=== PATIENT | female | born 1970 | race Caucasian/White ===

== ENCOUNTER 2019-04-24 19:18 | Emergency (ER) | payer MEDICAID ==
[~2019-04-24] VITALS: Ht 154.9 cm; Wt 64.0 kg
[2019-04-24 19:33] VITALS: BP 128/72
== END 2019-04-24 22:13 | disposition left against medical advice (07) ==
LOC: ER 19:18
DX: Z53.21 Procedure and treatment not carried out due to patient leaving prior to being seen by health care provider (principal)

== ENCOUNTER 2019-04-25 11:10 | Inpatient (IN) | payer MEDICAID ==
[~2019-04-25] VITALS: Ht 154.9 cm; Wt 63.5 kg
[2019-04-25] MEDS ORDERED: PIPERACILLIN/TAZ 3.375G PREMIX 50 ML IV ONE ×2 (12:00)
[2019-04-25] MEDS ORDERED: ONDANSETRON HCL 4MG/2ML INJ IV ONE (12:00)
[2019-04-25] MEDS ORDERED: MORPHINE SULFATE 4 MG/ML CPJ (NOT FOR IM USE) IV ONE (12:00)
[2019-04-25] MEDS ORDERED: SODIUM CHLORIDE 0.9% 1000ML BAG (SEPSIS BOLUS) IV ONE (12:00)
[2019-04-25] MEDS ORDERED: MORPHINE SULFATE 4 MG/ML CPJ (NOT FOR IM USE) IV NR (12:17)
[2019-04-25 12:21] LABS: BASOPHILS % 0.5 % (0.0-2.0); EOSINOPHILS % 0.8 % (0.0-5.0); HEMATOCRIT. 35.3 % (36.0-48.0); HEMOGLOBIN. 11.3 g/dL (12.0-16.0); LYMPHOCYTES % 11.6 % (20.0-50.0); MEAN CORPUSCULAR HEMOGLOBIN 25.4 pg (28.0-32.0); MEAN CORPUSCULAR VOLUME 79.6 fL (81.0-99.0); MEAN PLATELET VOLUME 8.7 fl (7.4-10.4); MONOCYTES % 8.6 % (2.0-8.0); NEUTROPHILS % 78.5 % (40.0-76.0); PLATELET 267 x1000/uL (130-400); RED BLOOD CELL COUNT 4.43 mill/uL (4.2-5.4); RED CELL DISTRIBUTION WIDTH 15.9 % (11.6-14.6)
[2019-04-25 12:26] LABS: CHLORIDE 107 mEq/L (98-107)
[2019-04-25 12:30] LABS: PARTIAL THROMBOPLASTIN TIME 28.5 sec (23.4-31.0)
[2019-04-25 13:00] LABS: HCG SCREEN NEGATIVE
[2019-04-25] MEDS ORDERED: CLINDAMYCIN 600 MG in DEXTROSE 5% WATER 50 ML IV ONE (14:15)
[2019-04-25 14:35] LABS: CLARITY URINE CLEAR (CLEAR); COLOR URINE YELLOW (YELLOW); KETONES URINE 1+ (NEGATIVE); LEUKOCYTE ESTERASE URINE NEGATIVE (NEGATIVE); NITRITE URINE NEGATIVE (NEGATIVE); OCCULT BLOOD URINE 2+ (NEGATIVE); PROTEIN URINE NEGATIVE (NEGATIVE); SPECIFIC GRAVITY URINE 1.022 (1.005-1.030); UROBILINOGEN URINE 0.2 E.U./dL (0.2-1.0)
[2019-04-25 14:54] LABS: *AMPHETAMINES SCREEN URINE NEGATIVE (NEGATIVE); *BARBITURATES SCREEN URINE NEGATIVE (NEGATIVE)
[2019-04-25 14:55] LABS: *BENZODIAZEPINES SCREEN URINE NEGATIVE (NEGATIVE); *COCAINE SCREEN URINE NEGATIVE (NEGATIVE); CANNABINOID URINE SCREEN NEGATIVE (NEGATIVE); METHADONE URINE SCREEN NEGATIVE (NEGATIVE); OPIATES URINE SCREEN PRESUMTIVE POSITIVE (NEGATIVE); PHENCYCLIDINE URINE SCREEN NEGATIVE (NEGATIVE)
[2019-04-25] MEDS ORDERED: IOHEXOL-300 100 ML BOTTLE ONE (14:55)
[2019-04-25] MEDS ORDERED: HYDROCODONE/ACETAMINOPHEN 5/325MG TABLET PO ONE (15:00)
[2019-04-25 16:00] VITALS: BP 103/63
[2019-04-25] MEDS ORDERED: ACETAMINOPHEN 325MG TABLET PO PRN (16:00)
[2019-04-25] MEDS ORDERED: KETOROLAC 30MG/ML VIAL IV PRN (16:00)
[2019-04-25] MEDS ORDERED: ONDANSETRON HCL 4MG/2ML INJ IV PRN ×2 (16:00)
[2019-04-25 16:28] VITALS: BP 103/63
[2019-04-25] MEDS ORDERED: VANCOMYCIN 1 G PREMIX 200 ML IV NR (19:00)
[2019-04-25] MEDS: HYDROCODONE/ACETAMINOPHEN 5/325MG TABLET PO PRN (19:53)
[2019-04-25 20:00] VITALS: BP 113/59
[2019-04-26] VITALS: BP 111/57
[2019-04-26] MEDS: HYDROCODONE/ACETAMINOPHEN 5/325MG TABLET PO PRN ×3 (03:24→22:33)
[2019-04-26 04:00] VITALS: BP 91/59
[2019-04-26] MEDS ORDERED: VANCOMYCIN 500 MG PREMIX 100 ML IV SCH (04:00)
[2019-04-26 06:03] LABS: BASOPHILS % 0.5 % (0.0-2.0); EOSINOPHILS % 1.2 % (0.0-5.0); HEMOGLOBIN. 10.4 g/dL (12.0-16.0); LYMPHOCYTES % 12.6 % (20.0-50.0); MEAN CORPUSCULAR HEMOGLOBIN 25.9 pg (28.0-32.0); MEAN CORPUSCULAR VOLUME 79.5 fL (81.0-99.0); MEAN PLATELET VOLUME 8.6 fl (7.4-10.4); MONOCYTES % 8.4 % (2.0-8.0); NEUTROPHILS % 77.3 % (40.0-76.0); PLATELET 241 x1000/uL (130-400); RED BLOOD CELL COUNT 4.03 mill/uL (4.2-5.4); RED CELL DISTRIBUTION WIDTH 15.9 % (11.6-14.6)
[2019-04-26 06:32] LABS: CHLORIDE 108 mEq/L (98-107)
[2019-04-26 08:00] VITALS: BP 101/71
[2019-04-26] MEDS: VANCOMYCIN 1 G PREMIX 200 ML IV SCH ×2 (10:14→22:22)
[2019-04-26 12:07] VITALS: BP 133/65
[2019-04-26 15:50] VITALS: BP 127/75
[2019-04-26 20:00] VITALS: BP 117/78
[2019-04-26] MEDS: AMPICILLIN SOD/SULBACTAM NA 1.5 G in SODIUM CHLORIDE 0.9% 50 ML IV SCH (21:19)
[2019-04-26] MEDS ORDERED: HYDROCODONE/ACETAMINOPHEN 5/325MG TABLET ONE (22:09)
[2019-04-27] VITALS: BP 109/62
[2019-04-27] MEDS: AMPICILLIN SOD/SULBACTAM NA 1.5 G in SODIUM CHLORIDE 0.9% 50 ML IV SCH (03:34)
[2019-04-27 04:00] VITALS: BP 127/66
[2019-04-27 08:00] VITALS: BP 120/77
[2019-04-27 08:17] LABS: BASOPHILS % 0.8 % (0.0-2.0); EOSINOPHILS % 2.8 % (0.0-5.0); HEMATOCRIT. 35.6 % (36.0-48.0); HEMOGLOBIN. 11.7 g/dL (12.0-16.0); LYMPHOCYTES % 20.5 % (20.0-50.0); MEAN CORPUSCULAR HEMOGLOBIN 26.1 pg (28.0-32.0); MEAN CORPUSCULAR VOLUME 79.5 fL (81.0-99.0); MEAN PLATELET VOLUME 8.6 fl (7.4-10.4); NEUTROPHILS % 66.9 % (40.0-76.0); PLATELET 290 x1000/uL (130-400); RED BLOOD CELL COUNT 4.48 mill/uL (4.2-5.4); RED CELL DISTRIBUTION WIDTH 16.1 % (11.6-14.6)
[2019-04-27 08:37] LABS: CHLORIDE 106 mEq/L (98-107)
[2019-04-27] MEDS ORDERED: AMPICILLIN SOD/SULBACTAM NA 1.5 G in SODIUM CHLORIDE 0.9% 50 ML IV SCH ×2 (09:00→12:00)
[2019-04-27] MEDS: VANCOMYCIN 1 G PREMIX 200 ML IV SCH (09:04)
[2019-04-27 12:00] VITALS: BP 116/74
[2019-04-27 13:11] VITALS: BP 116/74
[2019-04-27] MEDS ORDERED: VANCOMYCIN 750 MG PREMIX 150 ML IV SCH (18:00)
== END 2019-04-27 14:00 | disposition short-term general hospital (02) | DRG 720 ==
LOC: ER 11:10 → EDBEDREQ 11:52 → EDBEDREQSVC 12:23 → EDBEDREQTM 12:23 → EDBEDREQ 12:23 → 6EST 14:31 → EDBEDREQTM 14:33 → EDBEDREQ 14:33 → ENRESERV 14:40
PROVIDERS: ADMIT Internal Medicine; ATTEND Internal Medicine
DX: A41.9 Sepsis, unspecified organism (principal); L03.211 Cellulitis of face; M79.7 Fibromyalgia
CPT/HCPCS: 36415; 70487; 70540; 71045; 80048; 80202; 80305; 83605; 84145; 84703; 93005; 93970; 96365; 96366; 96368; 96375; 99285; J0295; J2270; J2405; J2543; J3370; J3490; J7030; J7060; Q9967